=== PATIENT | male | born 1980 ===

== ENCOUNTER 2020-10-10 21:41 | Emergency (ER) | payer MEDICAID ==
[~2020-10-10] VITALS: Ht 182.9 cm; Wt 80.0 kg
--- NOTE | 2020-10-10 21:41 | NUR ---
INITIAL PT CONTACT. PT CLE[facility]ENCIA FROM [facility] C/O ANXIETY, A&OX2, 2 V[address]TE FOR ANXIETY. SMALL HEMATOMA AND LAC PRESENT ON THE POSTERIOR HEAD, PT UNAWARE HOW THIS OCCURED. PT SUPINE ON GURNEY, RESTING WITH EYES CLOSED. CONTINUOUS PULSE OX AND CARDIAC MONITORING IN PLACE. WILL CONTINUE TO MONITOR.
--- NOTE | 2020-10-10 21:43 | NUR ---
UPON FURTHER DISCUSSION WITH PT, PT ALSO HAVING VISUAL/TACTILE HALLUCINATIONS. "THERES SNAKES CRAWLING UP MY BACK, I HATE SNAKES. I CAN'T GET AWAY FROM THEM"
[2020-10-10 22:17] LABS: BASOPHILS % (AUTO) 1 % (0-1); EOSINOPHILS % (AUTO) 1 % (1-7); LYMPHOCYTES % (AUTO) 12 % (22-44); MEAN CORPUSCULAR HEMOGLOBIN 33.7 pg (27.5-34.5); MEAN CORPUSCULAR HGB CONC 35.4 g/dL (33.2-36.2); MEAN PLATELET VOLUME 7.6 fL (7.4-10.4); MONOCYTES % (AUTO) 7 % (2-9); NEUTROPHILS % (AUTO) 78 % (42-75); PLATELET COUNT 235 x10^3/uL (130-400); RED BLOOD COUNT 4.79 x10^6/uL (4.38-5.82); RED CELL DISTRIBUTION WIDTH 14.2 % (9.4-14.8)
[2020-10-10 22:19] LABS: MD NO
[2020-10-10 22:21] LABS: ALANINE AMINOTRANSFERASE 27 U/L (12-78); ALBUMIN 3.8 g/dL (3.4-5.0); ANION GAP 10 mmol/L (5-15); CALCIUM 8.5 mg/dL (8.5-10.1); CHLORIDE 106 mmol/L (98-107); CREATININE 0.91 mg/dL (0.7-1.3)
[2020-10-10 22:22] LABS: SALICYLATE LEVEL < 1.7 mg/dL (2.8-20.0)
--- NOTE | 2020-10-10 22:24 | NUR ---
PT TO CT
[2020-10-10 22:26] LABS: ALKALINE PHOSPHATASE 86 U/L (45-117); BILIRUBIN,TOTAL 0.7 mg/dL (0.2-1.0); TOTAL PROTEIN 7.4 g/dL (6.4-8.2)
--- NOTE | 2020-10-10 22:37 | NUR ---
PT PROVIDED URINAL TO PROVIDE URINE SAMPLE. "UNABLE TO GO, I JUST CAN'T GO RIGHT NOW".
[2020-10-10] MEDS ORDERED: DIPH,PERTUSS(ACELL),TET VAC/PF 0.5 ML IM-VACC ONE ×2 (23:00→23:55)
--- NOTE | 2020-10-10 23:31 | NUR ---
PT PROVIDED URINE SAMPLE. SAMPLE WALKED TO LAB. PT DENIES ANY ADDITIONAL NEEDS AT THIS TIME.
[2020-10-10 23:41] LABS: AMPHETAMINE SCREEN, URINE Positive (Negative); BARBITURATE SCREEN, URINE Negative (Negative); BENZODIAZEPINE SCREEN, URINE Positive (Negative); CANNABINOID SCREEN, URINE Negative (Negative); COCAINE SCREEN, URINE Negative (Negative); METHADONE SCREEN, URINE Negative (Negative); OPIATE SCREEN, URINE Negative (Negative)
[2020-10-11 00:02] VITALS: BP 134/75
--- NOTE | 2020-10-11 00:04 | NUR ---
ERP AT BEDSIDE FOR WOUND REPAIR. PT TOLERATING WELL. NO ADDITIONAL NEEDS. TDAP VACCINATION GIVEN PER EMAR.
--- NOTE | 2020-10-11 00:27 | NUR ---
Patient given discharge instructions and they have confirmed that they understand the instructions. Patient ambulatory with steady gait.
--- NOTE | 2020-10-11 00:35 | NUR ---
Patient given discharge instructions and they have confirmed that they understand the instructions. Patient ambulatory with steady gait. Pt given bus pass upon d/c
== END 2020-10-11 00:37 | disposition home or self-care (01) ==
LOC: EDBD 21:41 → ED 21:47
DX: R94.31 Abnormal electrocardiogram [ECG] [EKG] (principal)
CPT/HCPCS: 12031; 36415; 70450; 80053; 80299; 80307; 80320; 80329; 85025; 90471; 90715; 93005; 99285; G0480